=== PATIENT | male | born 1985 | race American Indian/Alaskan Native ===

== ENCOUNTER 2023-05-31 11:27 | Emergency (ER) | payer OTHER ==
[~2023-05-31] VITALS: Ht 177.8 cm; Wt 102.1 kg
[2023-05-31] MEDS ORDERED: HYDROCODON-ACE1 EA10 PO (13:27)
[2023-05-31 15:39] VITALS: BP 124/84
--- NOTE | 2023-06-03 06:45 | EKG ---
[facility] [address] [facility] [place], [place] [address] Signed Sinus tachycardia Otherwise normal ECG No previous ECGs available Confirmed by ELODIA GUZMÁN MD ([id number]) on 06/03/2023 6:44:49 AM Electronically Signed By: ELODIA GUZMÁN 06/03/23 0645 PATIENT NAME: KAT BENITES Electrocardiogram DATE OF : 85 PHYSICIAN: ELODIA GUZMÁN REPORT #: [id number] REPORT IS CONFIDENTIAL AND NOT TO BE RELEASED WITHOUT AUTHORIZATION
== END 2023-05-31 15:39 | disposition home or self-care (01) ==
LOC: ED 11:27
DX: S22.21XA Fracture of manubrium, initial encounter for closed fracture (principal); S60.512A Abrasion of left hand, initial encounter; V89.2XXA Person injured in unspecified motor-vehicle accident, traffic, initial encounter
CPT/HCPCS: 36415; 70450; 71260; 72125; 74177; 80053; 85025; 90471; 90715; 93005; 93010; 99284 25; G0480; Q9967